=== PATIENT | male | born 1980 | race Caucasian/White ===

== ENCOUNTER 2016-09-06 13:50 | Emergency (ER) | payer MEDICAID ==
[2016-09-06 15:29] VITALS: BP 159/108
--- NOTE | 2016-09-06 15:40 | UC ---
Complaint Male HPI - HPI Summary HPI Summary: 36M presents with irritation when urinates for a month and a half. States that irritation occurs at all times. He believes it is urethra irritation. Says that pain increase when he ejaculates. He denies any fever, hematuria or flank pain. He says that drinking lots of fluids makes it better. He has been sexual activity with the same partner and denies any chance of STD. He does not have a primary. He denies any testicular pain or swelling. - History of Current Complaint Chief Complaint: UCGU Stated Complaint: URINARY ISSUE Time Seen by Provider: 09/06/16 15:38 - Allergies/Home Medications Allergies/Adverse Reactions: Allergies Allergy/AdvReac Type Severity Reaction Status Date / Time Hydrocodone Allergy Stomach Verified 09/06/16 15:25 Cramps Home Medications: Home Medications NK [No Home Medications Reported] 09/06/16 [History Confirmed 09/06/16] PMH/Surg Hx/FS Hx/Imm Hx Cardiovascular History Of: Reports: Hypertension - Not on meds - Surgical History Surgical History: None - Family History Known Family History: Negative: Cardiac Disease - Social History Alcohol Use: Weekly Substance Use Type: Marijuana Smoking Status (MU): Never Smoked Tobacco Review of Systems Constitutional: Negative Respiratory: Negative Cardiovascular: Negative Genitourinary: Other - irriation All Other Systems Reviewed And Are Negative: Yes Physical Exam Triage Information Reviewed: Yes Appearance: Well-Appearing Vital Signs: Initial Vital Signs Temp 98.4 F 09/06/16 15:25 Pulse 75 09/06/16 15:25 Resp 18 09/06/16 15:25 BP 159/108 09/06/16 15:25 Pulse Ox 100 09/06/16 15:25 Vital Signs Reviewed: Yes Eyes: Positive: Conjunctiva Clear ENT: Positive: Normal ENT inspection Respiratory: Positive: Lungs clear, Normal breath sounds Cardiovascular: Positive: RRR Abdomen Description: Positive: Nontender, Soft Bowel Sounds: Positive: Present Complaint Male Course/Dx - Course Course Of Treatment: discussed does not have testicular pain and patient would not like testicular exam, believes irritation is urinary in origin, u/a was normal, no blood in urine and does not have flank pain so do not suspect kidney stone, will test for STD, do not suspect testicular torison due to length of symptoms and no testicular pain and "States that is it not really a pain," advised if develop testicular pain or worsenings to go to ER for further workup , patient will establish care with primary for further workup, explained due to no WBC do not believe infection is present but will send urine for culture and gc/stanislav, patient understands and agrees with plan - Differential Dx/Diagnosis Differential Diagnosis/HQI/PQRI: Testicular Torsion, Ureteral Calculi, Urinary Tract Infection Provider Diagnoses: urinary discomfort Discharge - Discharge Plan Condition: Good Disposition: HOME Referrals: [facility] [Outside] Additional Instructions: Establish care with primary care physician to follow up about issue and for BP Return to ED if develop testicular pain, blood in urine, fever, or any new or worsening symptoms
== END 2016-09-06 16:19 | disposition home or self-care (01) ==
LOC: UCEAST 13:50
DX: R30.9 Painful micturition, unspecified (principal); N53.12 Painful ejaculation; Z88.5 Allergy status to narcotic agent; F12.90 Cannabis use, unspecified, uncomplicated
CPT/HCPCS: 81002; 87086; 87491; 87591; 99202; G0463

== ENCOUNTER 2018-01-02 07:46 | Emergency (ER) | payer MEDICAID, OTHER ==
--- NOTE | 2018-01-02 07:56 | UC ---
Skin Complaint HPI - HPI Summary HPI Summary: 37 yo male presents with a tick bite. Says he noticed it yesterday and scratched the area and it came off. Says it was "pretty big". Unsure how long it was attached. Has had lyme in the past and is asking for prophylactic doxy. - History of Current Complaint Time Seen by Provider: 01/02/18 07:56 Stated Complaint: TICK BITE Hx Obtained From: Patient Onset/Duration: Sudden Onset Current Severity: None - Allergy/Home Medications Allergies/Adverse Reactions: Allergies Allergy/AdvReac Type Severity Reaction Status Date / Time No Known Allergies Allergy Verified 01/02/18 08:02 Review of Systems Constitutional: Negative Skin: Other - tick bite right leg Respiratory: Negative Cardiovascular: Negative Neurovascular: Negative Neurological: Negative Psychological: Negative All Other Systems Reviewed And Are Negative: Yes PMH/Surg Hx/FS Hx/Imm Hx - Additional Past Medical History Additional PMH: None Previously Healthy: Yes - Surgical History Surgical History: None - Family History Known Family History: Negative: Cardiac Disease - Social History Occupation: Employed Full-time Lives: With Family Alcohol Use: Weekly Substance Use Type: Marijuana Smoking Status (MU): Never Smoked Tobacco Physical Exam - Summary Physical Exam Summary: GENERAL: NAD. WDWN. No pain distress. SKIN: 2mm area of mild edema and erythema to right calf. No remaining tick pieces appreciated. No streaking, bleeding, or drainage. NECK: Supple. Nontender. No lymphadenopathy. CHEST: No accessory muscle use. Breathing comfortably and in no distress. CV: RRR. Without m/r/g. NEURO: Alert. CN II-XII grossly intact. PSYCH: Age appropriate behavior. Triage Information Reviewed: Yes Vital Signs: Vital Signs: Temp Pulse Resp BP Pulse Ox 99.9 F 85 14 149/92 100 01/02/18 08:00 01/02/18 08:00 01/02/18 08:00 01/02/18 08:00 01/02/18 08:00 Course/Dx - Course Course Of Treatment: Tick bite right leg. 200mg doxycycline given in clinic - Diagnoses Provider Diagnoses: Tick bite right leg Discharge - Sign-Out/Discharge Documenting (check all that apply): Discharge/Admit/Transfer - Discharge Plan Condition: Stable Disposition: HOME Patient Education Materials: Lyme Disease (ED), Tick Bite (ED) Referrals: No Primary Care Phys,NOPCP [Primary Care Provider] - Additional Instructions: If you develop a fever, shortness of breath, chest pain, new or worsening symptoms - please call your PCP or go to the ED. Your blood pressure was high at todays visit. Please see your primary provider within 4 weeks for recheck and re-evaluation. You have been bitten by a tick. Once the tick is removed, these "bites" usually cause no problems. Tick fever, tick paralysis, [place] Spotted fever, and Lyme disease are uncommon -- but you should mention this tick bite to your doctor if you develop unusual symptoms in the next several weeks. If you develop any of the following, please see your physician promptly: (1) Fever, chills, or generalized malaise associated with a headache. (2) A red round area at the site of the bite (or elsewhere) (3) Joint pain, joint swelling or generalized weakness. (4) Redness, swelling, or drainage at the site of the bite. - Billing Disposition and Condition Condition: STABLE Disposition: HOME
[2018-01-02 08:02] VITALS: BP 149/92
[2018-01-02] MEDS ORDERED: DOXYcycline CAP(*) 100 MG PO ONE (08:03)
== END 2018-01-02 08:13 | disposition home or self-care (01) ==
LOC: UCEAST 07:46
DX: S80.861A Insect bite (nonvenomous), right lower leg, initial encounter (principal); W57.XXXA Bitten or stung by nonvenomous insect and other nonvenomous arthropods, initial encounter; Y93.9 Activity, unspecified; Y92.9 Unspecified place or not applicable
CPT/HCPCS: 99212; A9270-GY; G0463

== ENCOUNTER 2018-06-20 07:21 | Emergency (ER) | payer BC, OTHER ==
[2018-06-20 07:39] VITALS: BP 161/93
--- NOTE | 2018-06-20 08:01 | UC ---
General HPI - HPI Summary HPI Summary: URI symptoms wax / wane x approx one month. Last week stomach bug with fever, n /v/d, improved. But now with sinus pressure, ear pressure, discolored mucus from nose, hurts to lean forward. Minimal cough. No rash. No recent fever except last week. + household sick contact. 161/93 temp 99.1 - History of Current Complaint Chief Complaint: UCGeneralIllness Stated Complaint: SINUS ISSUE CONGESTION Time Seen by Provider: 06/20/18 07:51 Hx Obtained From: Patient Pain Intensity: 6 - Allergy/Home Medications Allergies/Adverse Reactions: Allergies Allergy/AdvReac Type Severity Reaction Status Date / Time No Known Allergies Allergy Verified 06/20/18 07:29 PMH/Surg Hx/FS Hx/Imm Hx Previously Healthy: Yes - hx lyme, most recent abx summer 2017 - Surgical History Surgical History: None - Family History Known Family History: Negative: Cardiac Disease - Social History Alcohol Use: None Substance Use Type: None Smoking Status (MU): Never Smoked Tobacco Review of Systems All Other Systems Reviewed And Are Negative: Yes Constitutional: Positive: Other - see hpi Skin: Positive: Negative Eyes: Positive: Negative ENT: Positive: Other - see hpi Respiratory: Positive: Other - see hpi Cardiovascular: Positive: Negative Gastrointestinal: Positive: Other - see hpi Motor: Positive: Negative Neurovascular: Positive: Negative Musculoskeletal: Positive: Negative Neurological: Positive: Negative - except sinus h/a Psychological: Positive: Negative Is Patient Immunocompromised?: No Physical Exam Triage Information Reviewed: Yes Appearance: Well-Appearing, Well-Nourished Vital Signs: Initial Vital Signs Temp 99.2 F 06/20/18 07:30 Pulse 89 06/20/18 07:30 Resp 18 06/20/18 07:30 BP 161/93 06/20/18 07:30 Pulse Ox 100 06/20/18 07:30 Vital Signs Reviewed: Yes Eye Exam: Normal ENT: Positive: Pharyngeal erythema - mild post ph redness, no sores / exudate, TM dull - TM dull, intact. Not red., Other - + frontal sinus tenderness, congestion Neck exam: Normal Neck: Positive: Supple, Nontender, No Lymphadenopathy Respiratory Exam: Normal Respiratory: Positive: Chest non-tender, Lungs clear, Normal breath sounds, No respiratory distress, No accessory muscle use Cardiovascular Exam: Normal Cardiovascular: Positive: RRR, No Murmur, Pulses Normal, Brisk Capillary Refill Abdominal Exam: Normal Abdomen Description: Positive: Nontender Musculoskeletal Exam: Normal Neurological Exam: Normal - grossly nonfocal Psychological Exam: Normal Skin Exam: Normal Course/Dx - Course Course Of Treatment: Reviewed bp with Mr. Antunez. He doesn't have a pcp yet, but plans to find a pcp soon. Will f/u accordingly. Reviewed coa / tx plan. Questions as posed answered to the best of my ability. - Differential Dx - Multi-Symptom Provider Diagnoses: Sinusitis. uri. high bp Discharge - Sign-Out/Discharge Documenting (check all that apply): Patient Departure All imaging exams completed and their final reports reviewed: No Studies - Discharge Plan Condition: Stable Disposition: HOME Prescriptions: Sulfamethox/Trimethoprim DS* [Bactrim DS 800/160 TAB*] 1 tab PO BID #20 tab Patient Education Materials: Sinusitis (ED), Hypertension (ED) Referrals: No Primary Care Phys,NOPCP [Primary Care Provider] - [facility] [Outside] Additional Instructions: Follow up with your primary care physician - recommend within the next month if possible. Seek medical attention for worse or new problems. Blood pressure today 161/93. - Billing Disposition and Condition Condition: STABLE Disposition: Home
== END 2018-06-20 08:16 | disposition home or self-care (01) ==
LOC: UCEAST 07:21
DX: J01.90 Acute sinusitis, unspecified (principal); J06.9 Acute upper respiratory infection, unspecified; I10 Essential (primary) hypertension
CPT/HCPCS: 99212; G0463

== ENCOUNTER 2019-11-10 08:04 | Emergency (ER) | payer BC ==
--- NOTE | 2019-11-10 08:14 | UC ---
General HPI - HPI Summary HPI Summary: 39 yo gentleman c/o one month cold sx / sinus sx. All improved. However, still sinus pressure and pain, radiating to ears L>R Min cough, just in am. No st no fever / chills No rash No GI / c/o's Has been feeling a little more dizzy than expected when playing with children, or sudden change in movement - History of Current Complaint Stated Complaint: SINUS COMPLAINT Time Seen by Provider: 11/10/19 08:14 Hx Obtained From: Patient - Allergy/Home Medications Allergies/Adverse Reactions: Allergies Allergy/AdvReac Type Severity Reaction Status Date / Time No Known Allergies Allergy Verified 11/10/19 08:10 Home Medications: Home Medications Azithromycin TAB* [Zithromax TAB (Z-JOSE MIGUEL) 250 mg #6 tabs] 2 tab PO .TODAY, THEN 1 DAILY #1 jose miguel 11/10/19 [Rx] PMH/Surg Hx/FS Hx/Imm Hx Previously Healthy: Yes - hx sinusitis - Surgical History Surgical History: None - Family History Known Family History: Negative: Cardiac Disease - Social History Alcohol Use: None Substance Use Type: None Smoking Status (MU): Never Smoked Tobacco Review of Systems All Other Systems Reviewed And Are Negative: Yes Constitutional: Positive: Negative Skin: Positive: Negative Eyes: Positive: Other ENT: Positive: Ear Ache, Nasal Discharge, Sinus Congestion Respiratory: Positive: Cough Cardiovascular: Positive: Negative Gastrointestinal: Positive: Negative Genitourinary: Positive: Negative Motor: Positive: Negative Neurovascular: Positive: Negative Musculoskeletal: Positive: Negative Neurological/Mental Status: Positive: Headache Psychological: Positive: Negative Is Patient Immunocompromised?: No Physical Exam Triage Information Reviewed: Yes Appearance: Well-Appearing, Well-Nourished Vital Signs Reviewed: Yes Eye Exam: Normal ENT Exam: Other - + frontal sinus pain and tenderness nares + swollen turbinates ENT: Positive: Pharyngeal erythema - mild post pharyng redness, no sores / exudates uvula midline, Nasal congestion, TM dull - TM dull, au. Not red. Neck exam: Normal Neck: Positive: Supple, Nontender, No Lymphadenopathy Respiratory Exam: Normal Respiratory: Positive: Chest non-tender, Lungs clear, Normal breath sounds, No respiratory distress, No accessory muscle use Cardiovascular Exam: Normal Cardiovascular: Positive: RRR, Pulses Normal, Brisk Capillary Refill Abdominal Exam: Normal Abdomen Description: Positive: Nontender Musculoskeletal Exam: Normal Neurological Exam: Normal - grossly nonfocal, except see hpi Psychological Exam: Normal Skin Exam: Normal - no visible or reported rash Course/Dx - Course Course Of Treatment: Reviewed coa / tx plan. Reviewed importance of bp follow up Not taking significant decongestants. Some caffeine. Will f/u with pcp (RN will give [facility] referral pamphlet), he will call to set up pcp appt. Rx azithromycin. Questions as posed answered to the best of my ability. - Diagnoses Provider Diagnosis: Sinusitis Discharge ED - Sign-Out/Discharge Documenting (check all that apply): Patient Departure All imaging exams completed and their final reports reviewed: No Studies - Discharge Plan Condition: Stable Disposition: HOME Prescriptions: Azithromycin TAB* [Zithromax TAB (Z-JOSE MIGUEL) 250 mg #6 tabs] 2 tab PO .TODAY, THEN 1 DAILY #1 jose miguel Patient Education Materials: Sinusitis (ED) Referrals: No Primary Care Phys,NOPCP [Primary Care Provider] - Additional Instructions: Blood pressure 155/87 today. A little high. Recommend check by primary care physician, if possible in the next 4 weeks. Hydrate. Probiotic. Please seek medical attention for worse or new problems. - Billing Disposition and Condition Condition: STABLE Disposition: Home
[2019-11-10 08:29] VITALS: BP 155/87
== END 2019-11-10 09:07 | disposition home or self-care (01) ==
LOC: UCEAST 08:04
DX: J32.9 Chronic sinusitis, unspecified (principal); R05 Cough
CPT/HCPCS: 99212; G0463